=== PATIENT | male | born 1975 ===

== ENCOUNTER 2025-03-07 15:09 | Outpatient (AMB) | payer OTHER, SELFPAY ==
--- OUTSIDE RECORDS SUMMARY | 2025-03-07 18:21 | XMS_ITS | Clinical Summary ---
Author Organization [facility] Address [address] [place] [address] Care Team Providers Care Data Analyst Report Writer Name Role Phone Caitlyn Dillon MD Primary Care Provider [phone] Allergies Active Allergy Reactions Criticality Noted Date Comments Multivitamin With Minerals Rash Medications methocarbamoL (ROBAXIN) 750 mg tablet Take 1 tablet (750 mg total) by mouth 4 (four) times a day for 10 days. 40 each 06/04/2024 Active Active Problems No known active problems Medical History Medical History Date Comments Hypertension Social History Tobacco Use Types Packs/Day Years Used Date Smoking Tobacco: Never Smokeless Tobacco: Never Tobacco Cessation:Counseling Given: Not Answered Sex and Gender Information Value Date Recorded Sex Assigned at Not on file Legal Sex Male 4:18 PM EDT Gender Identity Not on file Sexual Orientation Not on file Obstetrics History Last Filed Vital Signs Vital Sign Reading Time Taken Comments Blood Pressure 125/79 06/03/2024 11:58 PM EST Pulse 61 06/03/2024 11:58 PM EST Temperature 36.9 C (98.4 F) 06/03/2024 11:58 PM EST Respiratory Rate 19 06/03/2024 11:58 PM EST Oxygen Saturation 98% 06/03/2024 11:58 PM EST Inhaled Oxygen Concentration - - Weight 99.8 kg (220 lb) 06/03/2024 9:45 PM EST Height 175.3 cm (5' 9 ) 06/03/2024 9:45 PM EST Body Mass Index 32.49 06/03/2024 9:45 PM EST Plan of Treatment Upcoming Encounters Date Type Department Care Team (Late st Contact Info) Description 03/17/2025 1:30 PM EDT Consult Bariatric Surgery - [address] [place] [address] Fatmata Gilliam MD [facility] [place] [id number] Health Maintenance Due Date Last Done Comments Hepatitis B Vaccines (1 of 3 - 19+ 3-dose series) 02/29/1996 Cholesterol Screening (Lipid Panel) 04/25/2024 Colorectal Cancer Screening: Colonoscopy 04/25/2024 HIV Screening 04/25/2024 Hepatitis C Screening 04/25/2024 Social Influencers of Health Screening 04/25/2024 Hypertension/CHF/CAD Annual BMP Blood Test 06/04/2024 Depression Screening 06/30/2024 COVID-19 Vaccine ( season) 2025 05/02/2023, 04/11/2022, 05/17/2021, Additional history exists Influenza Vaccine (#1) 2025 , 05/02/2023, 04/16/2023, Additional history exists DTaP,Tdap,and Td Vaccines (3 - Td or Tdap) 05/07/2026 05/07/2016, 08/16/2005 HIB Vaccines Aged Out No longer eligi ble based on patient's age to complete this topic HPV Vaccines Aged Out No longer eligi ble based on patient's age to complete this topic Hepatitis A Vaccines Aged Out No long er eligible based on patient's age to complete this topic IPV Vaccines Aged Out No longer eligi ble based on patient's age to complete this topic MMR Vaccines Aged Out No longer eligi ble based on patient's age to complete this topic Meningococcal ACWY Vaccine Aged Out N o longer eligible based on patient's age to complete this topic Meningococcal B Vaccine Aged Out No l onger eligible based on patient's age to complete this topic Pneumococcal Vaccine: Pediatrics (0 to 5 Years) and At-Risk Patients (6 to 49 Years) Aged Out No longer eligible based on patient's age to complete this topic RSV Immunization Patients Under 20 months Aged Out No longer eligible based on patient's age to complete this topic Varicella Vaccines Aged Out No longer eligible based on patient's age to complete this topic Insurance [facility] Member Subscriber Plan / Payer (Ef fective 2022-Present) Name:ZurdoLeann samuel Relation to Subscriber:Self Name:Zurdo, Elmersil Payer ID:[id number] (NAIC) Type:Not on file Address: [address] [facility] Care Teams Data Analyst Report Writer Relationship Specialty Start Date End Date Caitlyn Dillon MD [address] [place] [phone] PCP - General Internal Medicine 06/04/24
== END 2025-03-07 15:11 | disposition home or self-care (01) ==
LOC: HO.HMGAL 15:09
PROVIDERS: PCP Internal Medicine; Visit Provider Registered Nurse Emergency
DX: J30.89 Other allergic rhinitis (principal)
CPT/HCPCS: 95117; 95165

== ENCOUNTER 2025-04-27 09:46 | Outpatient (AMB) | payer OTHER, SELFPAY ==
--- OUTSIDE RECORDS SUMMARY | 2025-04-27 11:39 | XMS_ITS | Clinical Summary ---
Author Organization [facility] Address [address] [place] [address] Care Team Providers Care Bar Back Name Role Phone Caitlyn Dillon MD Primary Care Provider [phone] Allergies Active Allergy Reactions Criticality Noted Date Comments Multivitamin With Minerals Rash 4 Medications methocarbamoL (ROBAXIN) 750 mg tablet Take 1 tablet (750 mg total) by mouth 4 (four) times a day for 10 days. 40 each 4 Active albuterol HFA (PROAIR HFA ; PROVENTIL HFA ; VENTOLIN HFA) 90 mcg/actuation inhaler Inhale 1 puff by mouth if needed. 5 Active Symbicort 80-4.5 mcg/actuation inhaler Inhale 2 puffs by mouth 2 (two) times a day. 5 Active busPIRone (BUSPAR) 15 mg tablet Take 1 tablet (15 mg total) by mouth 2 (two) times a day. Active cetirizine (ZyrTEC) 10 mg tablet Take 1 tablet (10 mg total) by mouth 1 (one) time each day. 2 Active dapsone (ACZONE) 5 % topical gel Apply 5 Applications topically 2 (two) times a day. 5 Active doxycycline (MONODOX) 100 mg capsule Take 1 capsule (100 mg total) by mouth 1 (one) time each day. 5 Active lisinopriL (PRINIVIL,ZESTR IL) 5 mg tablet Take 1 tablet (5 mg total) by mouth 1 (one) time each day. Active LORazepam (ATIVAN) 1 mg tablet Take 1 tablet (1 mg total) by mouth if needed. 5 Active venlafaxine (EFFEXOR) 75 mg tablet Take 1 tablet (75 mg total) by mouth 2 (two) times a day. 4 Active tirzepatide, weight loss, (Zepbound) 2.5 mg/0.5 mL injection Inject 0.5 mL (2.5 mg total) under the skin every 7 (seven) days. 2 mL 5 05/20/20 25 Active Active Problems No known active problems Encounters Date Type Department Care Team Description 03/22/2025 Telephone Bariatric Surgery [address] [address] Fatmata Gilliam MD 03/17/2025 1:30 PM EDT Consult Bariatric Surgery [address] [address] Fatmata Gilliam MD Class 2 obesity due to excess calories with body mass index (BMI) of 35.0 to 35.9 in adult, unspecified whether serious comorbidity present (Primary Dx) from Last 3 Months Medical History Medical History Date Comments Hypertension [...] Sign Reading Time Taken Comments Blood Pressure 118/69 03/17/2025 1:50 PM EDT Pulse 70 03/17/2025 1:50 PM EDT Temperature 36.6 C (97.8 F) 03/17/2025 1:50 PM EDT Respiratory Rate 19 06/03/2024 11:58 PM EST Oxygen Saturation 98% 06/03/2024 11:58 PM EST Inhaled Oxygen Concentration - - Weight 108 kg (238 lb) 03/17/2025 1:50 PM EDT Height 175.3 cm (5' 9 ) 03/17/2025 1:50 PM EDT Body Mass Index 35.15 03/17/2025 1:50 PM EDT Plan of Treatment Upcoming Encounters Date Type Department Care Team (Late st Contact Info) Description 09/08/2025 2:45 PM EDT Office Visit Bariatric Surgery - [place] [address] [place] [phone] Fatmata Gilliam MD [facility] [place] [address] Health Maintenance Due Date Last Done Comments Colorectal Cancer Screening: Colonoscopy 1977 Hepatitis B Vaccines (1 of 3 - 19+ 3-dose series) 02/29/1996 Cholesterol Screening (Lipid Panel) 04/25/2024 HIV Screening 04/25/2024 Hepatitis C Screening 04/25/2024 Social Influencers of Health Screening 04/25/2024 Hypertension/CHF/CAD Annual BMP Blood Test 06/04/2024 Depression Screening 06/30/2024 COVID-19 Vaccine ( season) 2025 05/02/2023, 04/11/2022, 05/17/2021, Additional history exists Influenza Vaccine (#1) 2025 , 05/02/2023, 04/16/2023, Additional history exists DTaP,Tdap,and Td Vaccines (3 - Td or Tdap) 05/07/2026 05/07/2016, 08/16/2005 RSV Immunization Adult Patients (1 - 1-dose 75+ series) 02/29/2052 HIB Vaccines Aged Out No longer eligi [...] patient's age to complete this topic Insurance [facility] GENER[facility] [employer] Care Teams Bar Back Relationship Specialty Start Date End Date Caitlyn Dillon MD [address] [place] [phone] PCP - General Internal Medicine 06/04/24
== END 2025-04-27 09:47 | disposition home or self-care (01) ==
LOC: HO.HMGAL 09:46
PROVIDERS: PCP Internal Medicine; Visit Provider Registered Nurse Emergency
DX: J30.89 Other allergic rhinitis (principal)
CPT/HCPCS: 95117; 95165

== ENCOUNTER 2025-06-08 10:10 | Outpatient (AMB) | payer OTHER, SELFPAY | END 2025-06-08 10:11 | disposition home or self-care (01) | LOC: HO.HMGAL 10:10 | PROVIDERS: PCP Internal Medicine; Visit Provider Registered Nurse Emergency | DX: J30.89 Other allergic rhinitis (principal) | CPT/HCPCS: 95117; 95165 ==